=== PATIENT | male | born 2000 | race Caucasian/White ===

== ENCOUNTER 2025-07-09 18:25 | Emergency (ER) | payer OTHER, SELFPAY ==
[2025-07-09 18:31] VITALS: BP 134/94
[2025-07-09 19:42] VITALS: BP 142/99; BMI 34.4
--- NOTE | 2025-07-09 20:11 | ED.GENMED ---
History of Present Illness
<Dolores Renee MD, Resident - Last Filed: 07/09/25 22:32>
General
Chief Complaint: Overdose Unintentional
Source: patient
Time Seen by Provider: 07/09/25 19:52
History of Present Illness
History of Present Illness:
Fer Monson is a 24-year-old male with anxiety and ASD (nonverbal at baseline) who presents to the ED after accidental overdose of 15-20 risperidone 0.25 mg pills 4 hours ago. He is accompanied by his family. Per his mom, she suspects that he
took about 15-20 risperidone pills around 4:45 PM today. She states that his usual dose is risperidone 0.25 mg 1.5 pills twice daily. She reports calling poison control and they suggested monitoring at home, however she felt that Fre is below
his baseline for energy and activity. Usually, he paces [id number] and is hyper energetic. However currently, he is laying in bed, although interactive and 'goofy' per his family. She also reports that she noticed he was flushed. As such,
she decided to bring him in for further evaluation and monitoring. She denies that he has access to or could have possibly ingested other medications.
Review of Systems
<Dolores Renee MD, Resident - Last Filed: 07/09/25 22:32>
Review of Systems
Allergies reviewed?: No
Other source history: family
All Other Systems: ROS reviewed and negative except as documented in HPI and ROS
Constitutional: Reports other (lower energy)
Phy Exam
<Dolores Renee MD, Resident - Last Filed: 07/09/25 22:32>
General Physical Exam
General Presentation: no apparent distress and other (laying in bed, making noises per baseline, laughing )
General Skin: warm, dry and flushed
General Habitus: obese
General Mental: usual mental status
ENT Exam
ENT Exam: EOMI
Gastrointestinal Exam
Gastrointestinal Exam: non tender, soft and non distended
Skin Exam
Skin Exam: warm/dry
Course
<Dolores Renee MD, Resident - Last Filed: 07/09/25 22:32>
Orders/Labs/Results
Orders:
Orders
07/09/25 20:09
Electrocardiogram (*1) Urgent
Reason for Study: Other
Other Reason for Exam: risperidone OD
EKG- Treatment ONCE
Vital Signs
Initial and Last Documented VS:
Initial Vital Signs
Temp Pulse Resp BP Pulse Ox
98.9 F 116 20 134/94 98
07/09/25 18:31 07/09/25 18:31 07/09/25 18:31 07/09/25 18:31 07/09/25 18:31
Last Documented Vital Signs
Temp Pulse Resp BP Pulse Ox
98.9 F 105 20 148/105 98
07/09/25 18:31 07/09/25 21:00 07/09/25 18:31 07/09/25 21:02 07/09/25 20:55
<Brain Henriquez DO - Last Filed: 07/09/25 20:47>
Orders/Labs/Results
Orders:
Orders
07/09/25 20:09
Electrocardiogram (*1) Urgent
Reason for Study: Other
Other Reason for Exam: risperidone OD
EKG- Treatment ONCE
Vital Signs
Initial and Last Documented VS:
Initial Vital Signs
Temp Pulse Resp BP Pulse Ox
98.9 F 116 20 134/94 98
07/09/25 18:31 07/09/25 18:31 07/09/25 18:31 07/09/25 18:31 07/09/25 18:31
Last Documented Vital Signs
Temp Pulse Resp BP Pulse Ox
98.9 F 105 20 148/105 98
07/09/25 18:31 07/09/25 21:00 07/09/25 18:31 07/09/25 21:02 07/09/25 20:55
<Dolores Renee MD, Resident - Last Filed: 07/09/25 22:32>
MDM/Problems Addressed
Differential Diagnosis Includes:
Unintentional Overdose
MDM/Problems Addressed:
Fer Monson is a 24-year-old male with anxiety and ASD (nonverbal at baseline) who presents to the ED after accidental overdose of 15-20 risperidone 0.25 mg pills 4 hours ago.
#Unintentional overdose
- EKG NSR
- Observed in ED for 3-4hrs without any concerns; discussed with family that he is safe to discharge home
<Dolores Renee MD, Resident - Last Filed: 07/09/25 22:32>
*Pulse Oximetry
SaO2: 95
Oxygen Mode of Delivery: Room air
<Brain Henriquez DO - Last Filed: 07/09/25 20:47>
*Pulse Oximetry
Patient hypoxic: no
*EKG
Interpreted by ED Provider?: Yes
Interpretation: normal
Comparison EKG: no comparison EKG present
Heart Rate: 78
Rate: normal
Rhythm: sinus
Ischemia: no ischemia
*Broadcast Journalist Interpretation
Rate: normal
Interpretation: normal
Heart Rate: 78
Rhythm: sinus
*Critical Care Note
Total Time (30-74mins, 75-104mins- exclusive of procedures): Not Applicable
ED Attending Note
<Dolores Renee MD, Resident - Last Filed: 07/09/25 22:32>
-
Portions of this chart may have been created with voice recognition software.� Occasional wrong word or��sound alike� substitutions may have occurred due to the inherent limitations of voice recognition software.
<Brain Henriquez DO - Last Filed: 07/09/25 20:47>
ED Attending Note
Patient seen and examined by attending physician: Yes
I performed a history and physical exam of patient and discussed management with resident, I reviewed resident's note and agree with documented findings and plan of care.: Yes
ED Attending Note:
Seen with resident examined independently agree with assessment and plan 24-year-old male accidentally took some extra risperidone, other spoke with poison control recommend watching him at home mom thought a little lethargic brought him here here
he looks well he is watching TV smiling mom states no access to any other meds does not appear to be intoxicated EKG noted
Discharge Plan
Departure
Patient Disposition: Home (Routine Discharge)
Date of Disposition: 07/09/25
Time of Disposition: 20:59
Patient with high blood pressure during this ER visit?: Yes
Condition: Good
Discharge Problem:
Accidental overdose of risperidone
Instructions: Accidental Overdose (DC)
Referrals:
Nellie Lewis MD [Family Provider, Internal Medicine]
Interventions
Interventions:
*Risk Screen - Suicide Last Done: 07/09/25 19:40
*General Assessment Last Done: 07/09/25 19:40
*Neglect/Abuse Screening Last Done: 07/09/25 19:40
*ED- Fall Risk Assessment Last Done: 07/09/25 19:40
*ED COVID-19 Vaccine History Last Done: 07/09/25 19:40
*Nursing Disposition Last Done: 07/09/25 21:10
ED- Cardiac Assessment Last Done: 07/09/25 19:40
ED- Neurological Assessment Last Done: 07/09/25 19:40
ED-Psychological Assessment Last Done: 07/09/25 19:40
ED- Pulmonary Assessment Last Done: 07/09/25 19:40
Discharge Date and Time
Discharge Date/Time: 07/09/25 21:10
Print Language: SLOVAK
[2025-07-09 21:02] VITALS: BP 148/105
== END 2025-07-09 21:10 | disposition home or self-care (01) ==
LOC: EMR 18:25
PROVIDERS: EMERGENCY PHYSICIAN Emergency Medicine; FAMILY PHYSICIAN Internal Medicine
DX: T43.591A Poisoning by other antipsychotics and neuroleptics, accidental (unintentional), initial encounter (principal); R03.0 Elevated blood-pressure reading, without diagnosis of hypertension; F84.0 Autistic disorder; F41.9 Anxiety disorder, unspecified
CPT/HCPCS: 99283; 93005